=== PATIENT | female | born 1955 | race Caucasian/White ===

== ENCOUNTER 2017-08-26 04:52 | Emergency (ER) | payer BC ==
[2017-08-26] MEDS: IBUPROFEN 600 MG TAB PO (06:01)
== END 2017-08-26 06:07 | disposition home or self-care (01) ==
LOC: FTE 04:52
DX: J01.00 Acute maxillary sinusitis, unspecified (principal); R40.2412 Glasgow coma scale score 13-15, at arrival to emergency department
CPT/HCPCS: 99284